=== PATIENT | male | born 1940 | race Caucasian/White ===

== ENCOUNTER 2017-09-14 23:02 | Inpatient (IN) ==
[2017-09-14] MEDS ORDERED: ALBUTEROL/IPRATROPIUM 3 ML NEB RESP TX STA (23:50)
[2017-09-14 23:56] LABS: Basophils # 0.1 10*3/uL (0.0-0.2); Basophils % 0.8 % (0.0-0.8); Eosinophils # 0.2 10*3/uL (0.0-0.87); Eosinophils % 1.8 % (0.00-10.9); Hematocrit 34.4 VOL% (42.0-52.0); Hemoglobin 11.5 GM/DL (14.0-18.0); Immature Granulocytes % 3.6 %; Immature Granulocytes Absolute 0.38 #; Lymphocytes # 1.2 10*3/uL (1.4-4.0); Lymphocytes % 11.2 % (21.2-54.2); Mean Corpuscular HGB Conc 33.4 GM/DL (32-36); Mean Corpuscular Hemoglobin 33 PG (27-34); Mean Corpuscular Volume 97.2 FL (87-102); Mean Platelet Volume 10.2 FL (9.6-12.0); Monocytes # 1.3 10*3/uL (0.11-0.8); NRBC # 0.04 10*3/uL; Neutrophils # 7.4 10*3/uL (1.4-7.4); Neutrophils % 70.6 % (38.7-73.9); Platelet Count 232 T/CUMM (130-400); Red Blood Count 3.54 MC/CUMM (3.8-5.5); Red Cell Distribution Width 14.7 % (9.3-17.3); White Blood Count 10.5 T/CUMM (4-12)
[2017-09-15 00:03] LABS: PT Patient Result 10.8 SECS; Partial Thromboplastin Time 26.1 SECS (0-40)
[2017-09-15 00:06] LABS: Apearance,Urine Slightly Hazy (Clear); Bacteria,Urine Occasional /HPF (Few); Bilirubin,Urine Negative (Negative); Blood, Urine Negative (Negative); Glucose,Urine (UA) 50 mg/dL (Negative); Ketones,Urine Negative (Negative); Mucus,Urine Few /LPF (Occasional); Nitrite,Urine Negative (Negative); Protein,Urine 30 MG/DL; RBC,Urine 1 /HPF (0-4); Urine Color Yellow (Yellow); Urine Specific Gravity 1.029 (1.001-1.035); WBC,Urine 1 /HPF (0-6)
[2017-09-15 00:13] LABS: Albumin 3.3 G/DL (3.4-5.0); Bilirubin,Total 0.6 MG/DL (0.2-1.0); Calcium 8.5 MG/DL (8.5-10.1); Lactic Acid 1.1 MMOL/L (0.4-2.0); Osmolality,Calculated 286.3 MOS/KG (273-304); Potassium 4.4 MMOL/L (3.5-5.1); Total Protein 6.6 G/DL (6.4-8.3)
[2017-09-15 00:16] LABS: Troponin I Only < 0.015 NG/ML (0.00-0.045)
[2017-09-15] MEDS ORDERED: ALBUTEROL 2.5 MG/3 ML NEB RESP TX PRN (02:53)
[2017-09-15] MEDS ORDERED: ACETAMINOPHEN 325 MG TABLET PO PRN (02:55)
[2017-09-15] MEDS: methylPREDNISolone SOD SUC 40 MG/1 ML VIAL IV SCH ×4 (05:47→23:47)
[2017-09-15] MEDS: LEVOFLOXACIN INJ 750 MG in PREMIX 1 EACH IV SCH (05:49)
[2017-09-15 05:57] LABS: Basophils # 0.1 10*3/uL (0.0-0.2); Basophils % 0.8 % (0.0-0.8); Eosinophils # 0.2 10*3/uL (0.0-0.87); Eosinophils % 2.6 % (0.00-10.9); Hematocrit 35.5 VOL% (42.0-52.0); Hemoglobin 11.6 GM/DL (14.0-18.0); Immature Granulocytes % 3.3 %; Lymphocytes # 1.8 10*3/uL (1.4-4.0); Lymphocytes % 19.8 % (21.2-54.2); Mean Corpuscular HGB Conc 32.7 GM/DL (32-36); Mean Corpuscular Hemoglobin 32 PG (27-34); Mean Corpuscular Volume 99.2 FL (87-102); Mean Platelet Volume 10.2 FL (9.6-12.0); Monocytes # 1.1 10*3/uL (0.11-0.8); Monocytes % 12.3 % (1.7-12.7); NRBC # 0.02 10*3/uL; Neutrophils # 5.6 10*3/uL (1.4-7.4); Neutrophils % 61.2 % (38.7-73.9); Platelet Count 227 T/CUMM (130-400); Red Blood Count 3.58 MC/CUMM (3.8-5.5); Red Cell Distribution Width 14.7 % (9.3-17.3); White Blood Count 9.1 T/CUMM (4-12)
[2017-09-15 06:13] LABS: Calcium 8.2 MG/DL (8.5-10.1); Osmolality,Calculated 286.1 MOS/KG (273-304); Potassium 3.9 MMOL/L (3.5-5.1)
[2017-09-15] MEDS: ALBUTEROL/IPRATROPIUM 3 ML NEB RESP TX SCH ×3 (08:20→19:39)
[2017-09-15] MEDS ORDERED: ONDANSETRON 4 MG TABLET PO PRN (09:50)
[2017-09-15] MEDS: PANTOPRAZOLE 40 MG TABLET PO SCH (09:52)
[2017-09-15] MEDS: ENOXAPARIN 40 MG/0.4 ML SYRINGE SUBCUT SCH (09:52)
[2017-09-15] MEDS: amLODIPine 10 MG TABLET PO SCH (11:18)
[2017-09-15] MEDS: MONTELUKAST 10 MG TABLET PO SCH (17:20)
[2017-09-15] MEDS: GABAPENTIN 300 MG CAPSULE PO SCH ×2 (17:20→21:14)
[2017-09-16] MEDS: ALBUTEROL/IPRATROPIUM 3 ML NEB RESP TX SCH ×4 (00:45→19:52)
[2017-09-16 04:50] LABS: Basophils % 0.3 % (0.0-0.8); Hematocrit 33.8 VOL% (42.0-52.0); Hemoglobin 11.3 GM/DL (14.0-18.0); Immature Granulocytes % 2.4 %; Immature Granulocytes Absolute 0.22 #; Lymphocytes # 0.6 10*3/uL (1.4-4.0); Lymphocytes % 6.2 % (21.2-54.2); Mean Corpuscular HGB Conc 33.4 GM/DL (32-36); Mean Corpuscular Hemoglobin 32 PG (27-34); Mean Corpuscular Volume 96.8 FL (87-102); Mean Platelet Volume 10.3 FL (9.6-12.0); Monocytes # 0.6 10*3/uL (0.11-0.8); NRBC # 0.04 10*3/uL; Neutrophils # 7.6 10*3/uL (1.4-7.4); Neutrophils % 84.1 % (38.7-73.9); Platelet Count 257 T/CUMM (130-400); Red Blood Count 3.49 MC/CUMM (3.8-5.5); Red Cell Distribution Width 14.9 % (9.3-17.3)
[2017-09-16 05:12] LABS: Calcium 8.3 MG/DL (8.5-10.1); Potassium 4.6 MMOL/L (3.5-5.1)
[2017-09-16 05:28] LABS: Microcytosis Slight
[2017-09-16 05:29] LABS: Ovalocytes Slight; Platelet Estimate Normal
[2017-09-16] MEDS: LEVOFLOXACIN INJ 750 MG in PREMIX 1 EACH IV SCH (06:17)
[2017-09-16] MEDS: methylPREDNISolone SOD SUC 40 MG/1 ML VIAL IV SCH ×4 (06:17→23:25)
[2017-09-16] MEDS: GABAPENTIN 300 MG CAPSULE PO SCH ×3 (09:57→20:13)
[2017-09-16] MEDS: FLUoxetine 20 MG CAPSULE PO SCH (09:57)
[2017-09-16] MEDS: MONTELUKAST 10 MG TABLET PO SCH (09:58)
[2017-09-16] MEDS: PANTOPRAZOLE 40 MG TABLET PO SCH (09:58)
[2017-09-16] MEDS: CLOPIDOGREL 75 MG TABLET PO SCH (09:59)
[2017-09-16] MEDS: ASPIRIN EC 81 MG TABLET PO SCH (09:59)
[2017-09-16] MEDS: amLODIPine 10 MG TABLET PO SCH (10:00)
[2017-09-16] MEDS: DOCUSATE SODIUM 100 MG CAPSULE PO SCH (10:00)
[2017-09-16] MEDS: MULTIVITAMIN (CENTRUM) TABLET PO SCH (10:01)
[2017-09-16] MEDS: ENOXAPARIN 40 MG/0.4 ML SYRINGE SUBCUT SCH (10:02)
[2017-09-16] MEDS: ROSUVASTATIN 20 MG TABLET PO SCH (20:13)
[2017-09-16] MEDS: BUDESONIDE/FORMOTEROL 160-4.5 INHALER 6 GM INH SCH (20:14)
[2017-09-16] MEDS: risperiDONE 0.5 MG TABLET PO SCH (20:14)
[2017-09-17] MEDS: ALBUTEROL/IPRATROPIUM 3 ML NEB RESP TX SCH ×4 (00:19→19:11)
[2017-09-17] MEDS: methylPREDNISolone SOD SUC 40 MG/1 ML VIAL IV SCH ×4 (05:14→23:09)
[2017-09-17] MEDS: LEVOFLOXACIN INJ 750 MG in PREMIX 1 EACH IV SCH (05:14)
[2017-09-17] MEDS: MONTELUKAST 10 MG TABLET PO SCH (09:21)
[2017-09-17] MEDS: MULTIVITAMIN (CENTRUM) TABLET PO SCH (09:21)
[2017-09-17] MEDS: amLODIPine 10 MG TABLET PO SCH (09:21)
[2017-09-17] MEDS: PANTOPRAZOLE 40 MG TABLET PO SCH (09:21)
[2017-09-17] MEDS: BUDESONIDE/FORMOTEROL 160-4.5 INHALER 6 GM INH SCH ×2 (09:21→20:16)
[2017-09-17] MEDS: DOCUSATE SODIUM 100 MG CAPSULE PO SCH (09:21)
[2017-09-17] MEDS: GABAPENTIN 300 MG CAPSULE PO SCH ×3 (09:22→20:16)
[2017-09-17] MEDS: FLUoxetine 20 MG CAPSULE PO SCH (09:22)
[2017-09-17] MEDS: ENOXAPARIN 40 MG/0.4 ML SYRINGE SUBCUT SCH (09:22)
[2017-09-17] MEDS: risperiDONE 0.5 MG TABLET PO SCH ×2 (09:22→20:16)
[2017-09-17] MEDS: CETIRIZINE 10 MG TABLET PO SCH (09:22)
[2017-09-17] MEDS: CLOPIDOGREL 75 MG TABLET PO SCH (09:22)
[2017-09-17] MEDS: ASPIRIN EC 81 MG TABLET PO SCH (09:22)
[2017-09-17] MEDS ORDERED: FUROSEMIDE 40 MG/4 ML VIAL IV ONE (17:08)
[2017-09-17] MEDS: MORPHINE 2 MG/1 ML SYRINGE IV PRN ×2 (17:20→23:09)
[2017-09-17 17:28] LABS: ABG Base Excess -6.4 MMOL/L (-2.5-2.5); ABG HCO3 19.2 MMOL/L (20-26); ABG Oxygen Saturation 96.2 % (95-100); ABG PCO2 28.2 MM HG (35-48); ABG PH 7.398 (7.35-7.45); ABG PO2 99.8 MM HG (80-95); ABG TCO2 15.7 MMOL/L (23-27); Allen Test Positive
[2017-09-17] MEDS: ROSUVASTATIN 20 MG TABLET PO SCH (20:16)
[2017-09-18] MEDS: ALBUTEROL/IPRATROPIUM 3 ML NEB RESP TX SCH ×4 (00:59→19:30)
[2017-09-18] MEDS: methylPREDNISolone SOD SUC 40 MG/1 ML VIAL IV SCH ×3 (05:57→17:49)
[2017-09-18] MEDS: LEVOFLOXACIN INJ 750 MG in PREMIX 1 EACH IV SCH (05:58)
[2017-09-18] MEDS: FLUoxetine 20 MG CAPSULE PO SCH (08:44)
[2017-09-18] MEDS: DOCUSATE SODIUM 100 MG CAPSULE PO SCH (08:44)
[2017-09-18] MEDS: ASPIRIN EC 81 MG TABLET PO SCH (08:44)
[2017-09-18] MEDS: BUDESONIDE/FORMOTEROL 160-4.5 INHALER 6 GM INH SCH ×2 (08:45→22:49)
[2017-09-18] MEDS: amLODIPine 10 MG TABLET PO SCH (08:45)
[2017-09-18] MEDS: PANTOPRAZOLE 40 MG TABLET PO SCH (08:45)
[2017-09-18] MEDS: CLOPIDOGREL 75 MG TABLET PO SCH (08:45)
[2017-09-18] MEDS: GABAPENTIN 300 MG CAPSULE PO SCH ×3 (08:45→22:49)
[2017-09-18] MEDS: MONTELUKAST 10 MG TABLET PO SCH (08:45)
[2017-09-18] MEDS: MULTIVITAMIN (CENTRUM) TABLET PO SCH (08:45)
[2017-09-18] MEDS: risperiDONE 0.5 MG TABLET PO SCH ×2 (08:45→22:49)
[2017-09-18] MEDS: ENOXAPARIN 40 MG/0.4 ML SYRINGE SUBCUT SCH (08:45)
[2017-09-18] MEDS: MORPHINE 2 MG/1 ML SYRINGE IV PRN ×3 (08:48→21:40)
[2017-09-18] MEDS: CETIRIZINE 10 MG TABLET PO SCH (08:52)
[2017-09-18] MEDS: ONDANSETRON 4 MG/2 ML VIAL IV PRN (14:13)
[2017-09-18] MEDS ORDERED: FUROSEMIDE 20 MG/2 ML VIAL ONE (14:30)
[2017-09-18] MEDS ORDERED: FUROSEMIDE 20 MG/2 ML VIAL IV ONE ×2 (14:34→15:33)
[2017-09-18] MEDS ORDERED: MORPHINE 2 MG/1 ML SYRINGE IV ONE (22:49)
[2017-09-18] MEDS: ROSUVASTATIN 20 MG TABLET PO SCH (22:49)
[2017-09-19] MEDS: methylPREDNISolone SOD SUC 40 MG/1 ML VIAL IV SCH ×5 (00:38→23:53)
[2017-09-19] MEDS: ALBUTEROL/IPRATROPIUM 3 ML NEB RESP TX SCH ×4 (01:29→20:24)
[2017-09-19] MEDS: ONDANSETRON 4 MG/2 ML VIAL IV PRN (01:45)
[2017-09-19] MEDS: MORPHINE 2 MG/1 ML SYRINGE IV PRN ×3 (01:51→16:07)
[2017-09-19] MEDS: LORazepam 2 MG/1 ML VIAL IV PRN ×2 (02:08→07:22)
[2017-09-19] MEDS: LEVOFLOXACIN INJ 750 MG in PREMIX 1 EACH IV SCH (05:58)
[2017-09-19] MEDS: FLUoxetine 20 MG CAPSULE PO SCH (09:33)
[2017-09-19] MEDS: ASPIRIN EC 81 MG TABLET PO SCH (09:33)
[2017-09-19] MEDS: MULTIVITAMIN (CENTRUM) TABLET PO SCH (09:33)
[2017-09-19] MEDS: PANTOPRAZOLE 40 MG TABLET PO SCH (09:33)
[2017-09-19] MEDS: GABAPENTIN 300 MG CAPSULE PO SCH ×3 (09:33→22:33)
[2017-09-19] MEDS: DOCUSATE SODIUM 100 MG CAPSULE PO SCH (09:33)
[2017-09-19] MEDS: amLODIPine 10 MG TABLET PO SCH (09:33)
[2017-09-19] MEDS: CLOPIDOGREL 75 MG TABLET PO SCH (09:33)
[2017-09-19] MEDS: risperiDONE 0.5 MG TABLET PO SCH ×2 (09:34→22:34)
[2017-09-19] MEDS: MONTELUKAST 10 MG TABLET PO SCH (09:34)
[2017-09-19] MEDS: CETIRIZINE 10 MG TABLET PO SCH (09:34)
[2017-09-19] MEDS: BUDESONIDE/FORMOTEROL 160-4.5 INHALER 6 GM INH SCH ×2 (09:43→22:34)
[2017-09-19] MEDS: ENOXAPARIN 40 MG/0.4 ML SYRINGE SUBCUT SCH (09:58)
[2017-09-19] MEDS: ROSUVASTATIN 20 MG TABLET PO SCH (22:33)
[2017-09-20] MEDS: ALBUTEROL/IPRATROPIUM 3 ML NEB RESP TX SCH ×5 (00:59→20:46)
[2017-09-20] MEDS: MORPHINE 2 MG/1 ML SYRINGE IV PRN ×6 (05:00→20:39)
[2017-09-20] MEDS: methylPREDNISolone SOD SUC 40 MG/1 ML VIAL IV SCH ×4 (05:55→23:32)
[2017-09-20] MEDS: LEVOFLOXACIN INJ 750 MG in PREMIX 1 EACH IV SCH (05:57)
[2017-09-20] MEDS: GABAPENTIN 300 MG CAPSULE PO SCH ×3 (08:03→20:41)
[2017-09-20] MEDS: MONTELUKAST 10 MG TABLET PO SCH (08:20)
[2017-09-20] MEDS: amLODIPine 10 MG TABLET PO SCH (08:20)
[2017-09-20] MEDS: CLOPIDOGREL 75 MG TABLET PO SCH (08:20)
[2017-09-20] MEDS: BUDESONIDE/FORMOTEROL 160-4.5 INHALER 6 GM INH SCH ×2 (08:20→20:41)
[2017-09-20] MEDS: MULTIVITAMIN (CENTRUM) TABLET PO SCH (08:20)
[2017-09-20] MEDS: ASPIRIN EC 81 MG TABLET PO SCH (08:20)
[2017-09-20] MEDS: ENOXAPARIN 40 MG/0.4 ML SYRINGE SUBCUT SCH (08:20)
[2017-09-20] MEDS: PANTOPRAZOLE 40 MG TABLET PO SCH (08:20)
[2017-09-20] MEDS: DOCUSATE SODIUM 100 MG CAPSULE PO SCH (08:20)
[2017-09-20] MEDS: CETIRIZINE 10 MG TABLET PO SCH (08:20)
[2017-09-20] MEDS: risperiDONE 0.5 MG TABLET PO SCH ×2 (08:20→20:41)
[2017-09-20] MEDS: FLUoxetine 20 MG CAPSULE PO SCH (08:20)
[2017-09-20] MEDS: ONDANSETRON 4 MG/2 ML VIAL IV PRN (20:29)
[2017-09-20] MEDS: ROSUVASTATIN 20 MG TABLET PO SCH (20:41)
[2017-09-21] MEDS: ALBUTEROL/IPRATROPIUM 3 ML NEB RESP TX SCH ×4 (00:15→19:55)
[2017-09-21] MEDS: ONDANSETRON 4 MG/2 ML VIAL IV PRN ×3 (05:29→23:53)
[2017-09-21] MEDS: MORPHINE 2 MG/1 ML SYRINGE IV PRN ×7 (05:29→23:49)
[2017-09-21] MEDS: LEVOFLOXACIN INJ 750 MG in PREMIX 1 EACH IV SCH (05:30)
[2017-09-21] MEDS: methylPREDNISolone SOD SUC 40 MG/1 ML VIAL IV SCH ×3 (05:34→18:43)
[2017-09-21] MEDS: ENOXAPARIN 40 MG/0.4 ML SYRINGE SUBCUT SCH (08:11)
[2017-09-21] MEDS: CETIRIZINE 10 MG TABLET PO SCH (08:11)
[2017-09-21] MEDS: CLOPIDOGREL 75 MG TABLET PO SCH (08:11)
[2017-09-21] MEDS: DOCUSATE SODIUM 100 MG CAPSULE PO SCH (08:11)
[2017-09-21] MEDS: FLUoxetine 20 MG CAPSULE PO SCH (08:11)
[2017-09-21] MEDS: amLODIPine 10 MG TABLET PO SCH (08:11)
[2017-09-21] MEDS: MULTIVITAMIN (CENTRUM) TABLET PO SCH (08:11)
[2017-09-21] MEDS: PANTOPRAZOLE 40 MG TABLET PO SCH (08:11)
[2017-09-21] MEDS: MONTELUKAST 10 MG TABLET PO SCH (08:11)
[2017-09-21] MEDS: ASPIRIN EC 81 MG TABLET PO SCH (08:11)
[2017-09-21] MEDS: risperiDONE 0.5 MG TABLET PO SCH ×2 (08:11→22:22)
[2017-09-21] MEDS: BUDESONIDE/FORMOTEROL 160-4.5 INHALER 6 GM INH SCH ×2 (08:11→22:22)
[2017-09-21] MEDS: GABAPENTIN 300 MG CAPSULE PO SCH ×3 (08:11→22:21)
[2017-09-21] MEDS ORDERED: MORPHINE 10 MG/1 ML VIAL IV PRN (13:45)
[2017-09-21] MEDS ORDERED: MORPHINE 10 MG/1 ML VIAL IV ONE (14:00)
[2017-09-21] MEDS: ROSUVASTATIN 20 MG TABLET PO SCH (22:21)
[2017-09-22] MEDS: ALBUTEROL/IPRATROPIUM 3 ML NEB RESP TX SCH ×4 (00:13→19:23)
[2017-09-22] MEDS: MORPHINE 2 MG/1 ML SYRINGE IV PRN ×11 (01:44→23:12)
[2017-09-22] MEDS: methylPREDNISolone SOD SUC 40 MG/1 ML VIAL IV SCH ×4 (01:46→17:55)
[2017-09-22] MEDS: ONDANSETRON 4 MG/2 ML VIAL IV PRN ×4 (04:43→21:02)
[2017-09-22] MEDS: LEVOFLOXACIN INJ 750 MG in PREMIX 1 EACH IV SCH (06:51)
[2017-09-22] MEDS: GABAPENTIN 300 MG CAPSULE PO SCH ×3 (07:52→21:07)
[2017-09-22] MEDS: amLODIPine 10 MG TABLET PO SCH (08:30)
[2017-09-22] MEDS: DOCUSATE SODIUM 100 MG CAPSULE PO SCH (08:30)
[2017-09-22] MEDS: MULTIVITAMIN (CENTRUM) TABLET PO SCH (08:30)
[2017-09-22] MEDS: ENOXAPARIN 40 MG/0.4 ML SYRINGE SUBCUT SCH (08:30)
[2017-09-22] MEDS: ASPIRIN EC 81 MG TABLET PO SCH (08:30)
[2017-09-22] MEDS: risperiDONE 0.5 MG TABLET PO SCH ×2 (08:31→21:07)
[2017-09-22] MEDS: FLUoxetine 20 MG CAPSULE PO SCH (08:31)
[2017-09-22] MEDS: BUDESONIDE/FORMOTEROL 160-4.5 INHALER 6 GM INH SCH ×2 (08:31→21:08)
[2017-09-22] MEDS: CETIRIZINE 10 MG TABLET PO SCH (08:31)
[2017-09-22] MEDS: PANTOPRAZOLE 40 MG TABLET PO SCH (08:31)
[2017-09-22] MEDS: CLOPIDOGREL 75 MG TABLET PO SCH (08:31)
[2017-09-22] MEDS: MONTELUKAST 10 MG TABLET PO SCH (08:31)
[2017-09-22] MEDS: ROSUVASTATIN 20 MG TABLET PO SCH (21:07)
[2017-09-23] MEDS: MORPHINE 2 MG/1 ML SYRINGE IV PRN ×12 (00:16→15:54)
[2017-09-23] MEDS: methylPREDNISolone SOD SUC 40 MG/1 ML VIAL IV SCH ×4 (00:18→21:07)
[2017-09-23] MEDS: ALBUTEROL/IPRATROPIUM 3 ML NEB RESP TX SCH ×4 (01:05→20:06)
[2017-09-23] MEDS: ONDANSETRON 4 MG/2 ML VIAL IV PRN ×2 (01:22→06:05)
[2017-09-23] MEDS: LEVOFLOXACIN INJ 750 MG in PREMIX 1 EACH IV SCH (06:03)
[2017-09-23] MEDS: ASPIRIN EC 81 MG TABLET PO SCH (11:10)
[2017-09-23] MEDS: GABAPENTIN 300 MG CAPSULE PO SCH ×3 (11:10→21:08)
[2017-09-23] MEDS: CLOPIDOGREL 75 MG TABLET PO SCH (11:11)
[2017-09-23] MEDS: amLODIPine 10 MG TABLET PO SCH (11:11)
[2017-09-23] MEDS: DOCUSATE SODIUM 100 MG CAPSULE PO SCH (11:11)
[2017-09-23] MEDS: ENOXAPARIN 40 MG/0.4 ML SYRINGE SUBCUT SCH (11:11)
[2017-09-23] MEDS: MULTIVITAMIN (CENTRUM) TABLET PO SCH (11:11)
[2017-09-23] MEDS: risperiDONE 0.5 MG TABLET PO SCH ×2 (11:12→21:08)
[2017-09-23] MEDS: MONTELUKAST 10 MG TABLET PO SCH (11:12)
[2017-09-23] MEDS: CETIRIZINE 10 MG TABLET PO SCH (11:12)
[2017-09-23] MEDS: PANTOPRAZOLE 40 MG TABLET PO SCH (11:12)
[2017-09-23] MEDS: FLUoxetine 20 MG CAPSULE PO SCH (11:12)
[2017-09-23] MEDS: BUDESONIDE/FORMOTEROL 160-4.5 INHALER 6 GM INH SCH ×2 (11:12→21:09)
[2017-09-23] MEDS: LORazepam 2 MG/1 ML VIAL IV PRN (17:40)
[2017-09-23 20:25] VITALS: BP 128/89
[2017-09-23] MEDS: ROSUVASTATIN 20 MG TABLET PO SCH (21:08)
== END 2017-09-23 22:56 | disposition expired | DRG 190 ==
LOC: EDUNIT# → EDBD → N.ED 23:02 → N.EDINP 09-15 02:41 → SUATTDRO 09-15 02:41 → N.4E 09-15 04:57
PROVIDERS: ADMIT Internal Medicine; ATTEND Internal Medicine